=== PATIENT | female | born 1950 | race Caucasian/White ===

== ENCOUNTER → 2016-09-27 | Outpatient (CLI) | payer OTHER ==
--- NOTE | 2016-09-27 12:47 | MAMMOGRAPHY REPORT ---
BILATERAL DIGITAL SCREENING MAMMOGRAM WITH CAD: 09/27/2016 CLINICAL HISTORY: Routine screening. Patient has no complaints. TECHNIQUE: Bilateral CC and MLO views were obtained. Current study was also evaluated with a Comput er Aided Detection (CAD) system. COMPARISON: Comparison is made to exams dated: 09/16/2015 mammogram, 09/08/2014 mammogram, 09/02/2013 ma mmogram, 07/24/2012 mammogram, 07/19/2011 mammogram, and 07/16/2010 mammogram - [facility] nter. BREAST COMPOSITION: The tissue of both breasts is heterogeneously dense, which may obscure small ma sses. FINDINGS: There are scattered stable punctate microcalcifications in the breasts. No new suspicious mass, architectural distortion or cluster of microcalcifications is seen. IMPRESSION: ACR BI-RADS CATEGORY 2: BENIGN There is no mammographic evidence of malignancy. A 1 year screening mammogram is recommended. The p atient will receive written notification of the results. Approximately 10% of breast cancers are not detected with mammography. A negative mammographic repor t should not delay biopsy if a clinically suggestive mass is present. Hailey Coyle M.D. ay/:09/27/2016 12:06:09 Lead Scientist: Tia Hilliard M, [facility] letter sent: Normal 1/2 BI-RADS Code: ACR BI-RADS Category 2: Benign
== END | disposition home or self-care (01) ==
LOC: C.MAMM 09:10
PROVIDERS: ATTEND Internal Medicine
DX: Z12.31 Encounter for screening mammogram for malignant neoplasm of breast (principal)

== ENCOUNTER → 2016-11-17 | Outpatient (CLI) | payer OTHER ==
[2016-11-17 12:40] LABS: BASO % 1.1 %; BASO ABS # 0.07 K/uL (0-0.2); COMPLETE YES; EOS % 3.6 %; HEMATOCRIT 41.3 % (37-47); IG% 0.2 %; LYMPH % 41.1 %; LYMPH ABS # 2.62 K/uL (1.2-3.4); MEAN CELL VOLUME 94.7 fL (80-100); MEAN CORPUSCULAR HEMOGLOBIN 31.7 pg (25-34); MEAN CORPUSCULAR HGB CONC 33.4 g/dl (32-36); MEAN PLATELET VOLUME 11.4 fL (7.4-10.4); MONO % 8.2 %; NEUT % 45.8 %; PLATELET COUNT 278 K/uL (130-400); RED BLOOD COUNT 4.36 M/uL (4.2-5.4); WHITE BLOOD COUNT 6.37 K/uL (4.8-10.8)
[2016-11-17 12:57] LABS: CALCIUM 9.8 mg/dl (8.5-10.1)
[2016-11-17 12:58] LABS: BLOOD UREA NITROGEN 20 mg/dl (7-18); BUN/CREATININE RATIO 25.6 (10-20); CARBON DIOXIDE 28 mmol/L (21-32); CHLORIDE 105 mmol/L (98-107); CREATININE 0.79 mg/dl (0.60-1.20); GLUCOSE 88 mg/dl (70-99); MAGNESIUM 2.6 mg/dl (1.8-2.4); SODIUM 140 mmol/L (136-145)
== END | disposition home or self-care (01) ==
LOC: C.LABSPEC 12:10
PROVIDERS: ATTEND Internal Medicine
DX: M25.561 Pain in right knee (principal); M25.562 Pain in left knee; M79.1 Myalgia

== ENCOUNTER → 2016-11-17 | Outpatient (CLI) | payer OTHER ==
--- NOTE | 2016-11-17 12:37 | DIAGNOSTIC IMAGING REPORT ---
LEFT HIP UNILATERAL 2 VIEWS CLINICAL HISTORY: Left hip pain. COMPARISON: None. DISCUSSION: There are mild to moderate osteoarthritic changes. There are no acute fractures. No destructive lesions are visualized. There are no dislocations. IMPRESSION: Osteoarthritic change. No evidence of fracture. No destructive lesions are visualized. Electronically signed by: Jaquan Mancuso M.D. 11/17/2016 12:36 PM Dictated Date/Time: 11/17/2016 12:35 PM
--- NOTE | 2016-11-17 12:39 | DIAGNOSTIC IMAGING REPORT ---
LEFT KNEE 1 OR 2 VIEWS ROUTINE CLINICAL HISTORY: Left knee pain COMPARISON: None. DISCUSSION: There are mild osteoarthritic changes present. No acute fractures are visualized. No destructive lesions are evident. IMPRESSION: Mild degenerative change. No fractures identified. Electronically signed by: Jaquan Mancuso M.D. 11/17/2016 12:38 PM Dictated Date/Time: 11/17/2016 12:38 PM
--- NOTE | 2016-11-17 12:40 | DIAGNOSTIC IMAGING REPORT ---
RIGHT KNEE 2 VIEWS CLINICAL HISTORY: Right knee pain COMPARISON: None. DISCUSSION: No acute fractures are visualized. There are minor degenerative changes present. There are no destructive lesions. IMPRESSION: Minor degenerative change. No fractures identified. Electronically signed by: Jaquan Mancuso M.D. 11/17/2016 12:39 PM Dictated Date/Time: 11/17/2016 12:38 PM
== END | disposition home or self-care (01) ==
LOC: C.RAD 11:43
PROVIDERS: ATTEND Internal Medicine
DX: M25.562 Pain in left knee (principal); M25.561 Pain in right knee; M25.552 Pain in left hip; M16.12 Unilateral primary osteoarthritis, left hip

== ENCOUNTER → 2017-04-27 | Outpatient (CLI) | payer OTHER ==
[2017-04-27 13:41] LABS: ALT/SGPT 18 U/L (12-78); AST/SGOT 18 U/L (15-37); BLOOD UREA NITROGEN 26 mg/dl (7-18); BUN/CREATININE RATIO 32.7 (10-20); CARBON DIOXIDE 26 mmol/L (21-32); CHLORIDE 107 mmol/L (98-107); CHOLESTEROL 222 mg/dl (0-200); GLUCOSE 84 mg/dl (70-99); SODIUM 139 mmol/L (136-145)
[2017-04-27 13:44] LABS: ALB/GLOB RATIO 1.1 (0.9-2); ALKALINE PHOSPHATASE 78 U/L (45-117); CHOLESTEROL/HDL RATIO 2.9; HDL CHOLESTEROL 77 mg/dl; TRIGLYCERIDES 110 mg/dl (0-150); VERY LOW DENSITY LIPOPROT CALC 22 mg/dl
[2017-04-27 14:15] LABS: BASO ABS # 0.06 K/uL (0-0.2); COMPLETE YES; EOS % 7.5 %; HEMATOCRIT 40.1 % (37-47); IG% 0.2 %; LYMPH % 36.6 %; MEAN CELL VOLUME 94.6 fL (80-100); MEAN CORPUSCULAR HEMOGLOBIN 31.8 pg (25-34); MEAN CORPUSCULAR HGB CONC 33.7 g/dl (32-36); MEAN PLATELET VOLUME 11.3 fL (7.4-10.4); NEUT % 46.7 %; PLATELET COUNT 286 K/uL (130-400); RED BLOOD COUNT 4.24 M/uL (4.2-5.4); WHITE BLOOD COUNT 5.74 K/uL (4.8-10.8)
== END | disposition home or self-care (01) ==
LOC: C.LABSPEC 12:43
PROVIDERS: ATTEND Internal Medicine
DX: E78.5 Hyperlipidemia, unspecified (principal); M19.90 Unspecified osteoarthritis, unspecified site

== ENCOUNTER → 2017-04-28 | Outpatient (CLI) | payer OTHER | END | disposition home or self-care (01) | LOC: C.LABSPEC 15:25 | PROVIDERS: ATTEND Internal Medicine | DX: Z12.11 Encounter for screening for malignant neoplasm of colon (principal) ==

== ENCOUNTER → 2017-06-07 | Outpatient (CLI) | payer OTHER ==
--- NOTE | 2017-06-07 15:27 | DIAGNOSTIC IMAGING REPORT ---
Gabriele ABDUL SHLDR,HIP,KNEE CLINICAL HISTORY: 66 years-old Female presenting with LEFT HIP DJD. COMPARISON: 11/17/2016. PROCEDURE: The risks, benefits, and alternatives to the procedure were discussed with the patient. Written informed consent was obtained. The patient was placed supine on the fluoroscopy table, and a left hip injection was performed under fluoroscopic guidance. The area was prepped and draped in the usual sterile fashion. The skin and soft tissues anesthetized with local 1% lidocaine. The left hip joint was accessed utilizing a 22-gauge needle. Approximately 1 mL of Optiray 300 was injected into the joint space under fluoroscopic guidance to confirm intra-articular positioning. Subsequently, a 10 mL mixture containing 8 mL of 0.5% Bupivacaine and 2 mL of betamethasone was injected into the joint. The procedure was well tolerated without immediate complication. Fluoroscopy dosage (mGy): Not available.. Fluoroscopy time: 11 seconds. Number of fluoroscopic spot images: 0. IMPRESSION: Successful injection of the left hip under fluoroscopic guidance. Electronically signed by: Larry Romero M.D. 06/07/2017 3:25 PM Dictated Date/Time: 06/07/2017 3:25 PM
== END | disposition home or self-care (01) ==
LOC: C.RADBC 13:57
PROVIDERS: ATTEND Orthopaedic Surgery
DX: M16.12 Unilateral primary osteoarthritis, left hip (principal)

== ENCOUNTER → 2017-09-01 | Outpatient (CLI) | payer OTHER ==
--- NOTE | 2017-09-01 15:07 | DIAGNOSTIC IMAGING REPORT ---
L INJ MAJOR JNT SHLDR,HIP,KNEE CLINICAL HISTORY: HIP PAIN COMPARISON STUDY: None FLUOROSCOPY TIME: 16 seconds. FINDINGS: Following description of procedure and informed consent, a 20-gauge needle was inserted to the left hip joint space. Its intra-articular location is confirmed with nonionic contrast administration. This is followed by therapeutic steroid injection per physician's order. There are no complications. IMPRESSION: Therapeutic left hip injection. No complications. The above report was generated using voice recognition software. It may contain grammatical, syntax or spelling errors. Electronically signed by: Justin Ferguson M.D. 09/01/2017 3:06 PM Dictated Date/Time: 09/01/2017 3:04 PM
== END | disposition home or self-care (01) ==
LOC: C.RADBC 13:53
PROVIDERS: ATTEND Orthopaedic Surgery
DX: M16.12 Unilateral primary osteoarthritis, left hip (principal)

== ENCOUNTER → 2017-10-03 | Outpatient (CLI) | payer OTHER ==
--- NOTE | 2017-10-05 07:49 | MAMMOGRAPHY REPORT ---
BILATERAL DIGITAL SCREENING MAMMOGRAM TOMOSYNTHESIS WITH CAD: 10/03/2017 CLINICAL HISTORY: Routine screening. Patient has no complaints. TECHNIQUE: Breast tomosynthesis in addition to standard 2D mammography was performed. Current study was also evaluated with a Computer Aided Detection (CAD) system. COMPARISON: Comparison is made to exams dated: 09/27/2016 mammogram, 09/16/2015 mammogram, 09/08/2014 tirso mogram, 09/02/2013 mammogram, 07/24/2012 mammogram, and 07/16/2010 mammogram - [facility] er. BREAST COMPOSITION: The tissue of both breasts is heterogeneously dense, which may obscure small mas ses. FINDINGS: The parenchymal pattern is unchanged. No developing mass, architectural distortion or clus ter of suspicious microcalcifications is seen in either breast. IMPRESSION: ACR BI-RADS CATEGORY 2: BENIGN There is no mammographic evidence of malignancy. A 1 year screening mammogram is recommended. The pa tient will receive written notification of the results. Approximately 10% of breast cancers are not detected with mammography. A negative mammographic report should not delay biopsy if a clinically suggestive mass is present. Hailey Colye M.D. ay/:10/03/2017 15:29:13 Global Position System Technician: Jayda WINTERS(Tia)(Gume), [facility] letter sent: Normal 1/2 BI-RADS Code: ACR BI-RADS Category 2: Benign
== END | disposition home or self-care (01) ==
LOC: C.MAMM 09:11
PROVIDERS: ATTEND Internal Medicine
DX: Z12.31 Encounter for screening mammogram for malignant neoplasm of breast (principal)

== ENCOUNTER 2022-11-01 05:20 | Observation (INO) ==
--- NOTE | 2022-10-05 14:27 | PAT Medication Instructions ---
Medication Instructions Date of Service October 05, 2022 Home Medications Medication Instructions Recorded clindamycin HCl 300 mg capsule 600 mg PO ONCE PRN pre dental, pre 08/02/21 invasive procedure #2 caps atorvastatin 20 mg tablet 20 mg PO QAM calcium carb-ergocalciferol (vit D2) 600 mg calcium-200 unit tablet 1 tab PO BID latanoprostene bunod 0.024 % eye drops (Vyzulta) 1 drp ophthalmic (eye) HS multivitamin 1 cap PO QAM naproxen sodium 220 mg tablet (Aleve) 220 mg PO BID PRN Pain clindamycin HCl 300 mg capsule 600 mg PO ONCE PRN pre dental, pre invasive procedure tamoxifen 20 mg tablet 20 mg PO QAM Continue as directed clindamycin HCl 300 mg capsule 600 mg PO ONCE PRN pre dental, pre invasive procedure (if needed) ASK your surgeon for instructions naproxen sodium 220 mg tablet (Aleve) 220 mg PO BID PRN Pain ASK your prescriber and surgeon tamoxifen 20 mg tablet 20 mg PO QAM DO NOT take the morning of surgery calcium carb-ergocalciferol (vit D2) 600 mg calcium-200 unit tablet 1 tab PO BID multivitamin 1 cap PO QAM Take morning of surgery With a small sip of water, OTHERWISE NOTHING TO EAT OR DRINK AFTER MIDNIGHT: atorvastatin 20 mg tablet 20 mg PO QAM Take evening before surgery calcium carb-ergocalciferol (vit D2) 600 mg calcium-200 unit tablet 1 tab PO BID latanoprostene bunod 0.024 % eye drops (Vyzulta) 1 drp ophthalmic (eye) HS Other Notes If you have any questions please call us at [phone] or [phone] or [phone] or [phone]
--- NOTE | 2022-10-11 10:01 | Anesthesiology Consultation ---
Date of Service October 11, 2022 Assessment & Plan (1) Encounter for pre-operative examination: - COVID screening: Per assessment on 10/11: No known COVID-19 positive contacts or current COVID-19 related symptoms. Travel screen negative. Patient vaccinated. At surgeon discretion if preop Covid testing being done. - Outpatient joint assessment: Pt currently scheduled for inpatient pathway. If surgeon requests review for outpatient joint pathway, patient is an acceptable candidate for outpatient joint program from anesthesia standpoint pending surgeon's office assessment that patient is motivated, has good support and completes Same Day Joint Program preop requirements. Chart Review Chart Review: Acceptable Risk for Surgery and Patient seen in Pre Admission Testing Teaching & Discussion Pre-Anesthesia Teaching/Discussion Notes: Instructed NPO after midnight before surgery,except medications with 15 cc of water. Medication instructions provided according to the PAT guidelines. History Surgery Operation Date: 11/01/22 07:00 Proposed Procedures p Right Total Hip Arthroplasty - Demetrius Watt MD Height/Weight Height: 5 ft 3 in Weight: 74.3 kg Allergies Allergy/AdvReac Type Severity Reaction Status Date / Time amoxicillin Allergy Unknown HIVES Verified 03/04/21 09:23 Sulfa (Sulfonamide AdvReac Unknown GI UPSET Verified 03/04/21 09:23 Antibiotics) Medications Home Medications Medication Instructions Recorded Confirmed Last Taken atorvastatin 20 mg tablet 20 mg PO QAM 02/11/21 10/05/22 02/22/21 calcium carb-ergocalciferol (vit 1 tab PO BID 02/11/21 10/05/22 02/22/21 D2) 600 mg calcium-200 unit tablet latanoprostene bunod 0.024 % eye 1 drp ophthalmic (eye) HS 02/11/21 10/05/22 Unknown drops (Vyzulta) multivitamin 1 cap PO QAM 02/11/21 10/05/22 02/22/21 naproxen sodium 220 mg tablet 220 mg PO BID PRN Pain 02/11/21 10/05/22 02/11/21 (Aleve) clindamycin HCl 300 mg capsule 600 mg PO ONCE PRN pre dental, pre 08/02/21 10/05/22 Unknown invasive procedure #2 caps tamoxifen 20 mg tablet 20 mg PO QAM 10/05/22 10/05/22 Unknown Past Medical History Medical History Arthritis Degenerative joint disease of right hip Glaucoma History of COVID-19 04/2022- scratchy throat, fatigue, no hospitalization, no current issues History of nerve impingement sciatic area Hypercholesterolemia Exercise / Class Metabolic Activity II 4-5 Yardwork/Stairs/Walk up hill (one FS (no CP, no SOB)) Past Family History Family History Father Diabetes Brother Diabetes Family history of Parkinson disease Grandmother No problems noted. Brother Diabetes Grandmother (Paternal) Diabetes Brother No problems noted. Past Surgical History Surgical History (Updated 10/11/22 @ 10:08 by Yennifer Connelly) History of colonoscopy with polypectomy Hx of bilateral cataract extraction S/P breast biopsy (01/29/21) pre cancerous lump right breast- on tamoxifen Status post left hip replacement Past Anesthesia History No Hx of Anesthesia Complications and No Family Hx of Anesthesia Complications History of PONV No Hx of PONV and No Hx of Motion Sickness Social History Smoking Status: Never smoker Do You Dip or Chew Tobacco: No Hx Alcohol Use: Yes Alcohol type: wine alcohol intake frequency: a few times a month Hx Substance Use: No substance use type: does not use Review of Systems Patient denies chest pain, shortness of breath, dyspnea on exertion, fever, chills, cough, wheezing, palpitations. Physical Exam Vital Signs VITALS BP 117/78 P 74 TEMP 74.3 SP02 96%RA RESP 16 PHYSICAL Full cervical extension range of motion. Full TMJ range of motion. TMD 3 finger breaths Mallampati Score 1 Dentition: intact, + crowns (several) Lungs: clear throughout to auscultation Cardiac: regular rate and rhythm, no murmurs noted Spine: normal Carotid arteries: negative bruit Extremities: no edema Lab Results Anesthesia Preop Results Results Anesthesia Widget: WBC 5.38 K/ul (4.8-10.8) 10/11/22 Hgb 12.7 g/dl (12.0-16.0) 10/11/22 Hct 38.3 % (37.0-47.0) 10/11/22 Plt 233 K/uL (130-400) 10/11/22 Na 136 mmol/L (136-145) 10/11/22 K 4.0 mmol/L (3.5-5.1) 10/11/22 Cl 104 mmol/L (98-107) 10/11/22 CO2 27 mmol/L (21-32) 10/11/22 BUN 22 mg/dl (6-23) 10/11/22 Creat 0.86 mg/dl (0.6-1.2) 10/11/22 Glucose Level 115 mg/dl (70-99(Fasting)) H 10/11/22 PT 10.6 Seconds (9.0-12.0) 10/11/22 PTT 23.1 Seconds (21.0-31.0) 10/11/22 INR 1.0 (0.9-1.1) 10/11/22 Blood Type A Positive 10/11/22 Antibody Screen NEGATIVE 10/11/22 Testing Electrocardiogram Date: 02/08/22 NSR at 60bpm. Rightward axis. Chest X-Ray Date: 02/08/22 FINDINGS: Cardiomediastinal and hilar silhouettes are within normal limits. Hyperinflation with diaphragmatic flattening. No pneumothorax, pleural effusion, airspace consolidation or overt pulmonary edema. Spondylitic spurring of the spine. Mild lower thoracic levoscoliosis. IMPRESSION: No acute process. COVID-19 Risk Screen Screening Information COVID-19 Screen Date: 10/11/22 Exposure 21 Days Family/Household +COVID Last 21 Days: No Exposure 10 Days Any COVID Exposure Last 10 Days: No Symptoms Last 10 Days Experienced COVID Sx Last 10 Days: No + COVID 0-90 Days COVID + in Last 0-90 Days: No
--- NOTE | 2022-10-28 14:47 | History and Physical Report ---
CHIEF COMPLAINT: Right hip pain. HISTORY OF PRESENT ILLNESS: The patient is a 71-year-old female well known to me from previous left hip replacement done in 2018. Over the past several years, she has developed increased pain and disc omfort in her right hip. She was seen in Pain Clinic and had an extensive spine evaluation and spine surgery, I believe done by Dr. Holly dickinson in 2021. This helped her somewhat, but really not that m [facility]. She continues to be bothered by buttock, groin, and thigh pain. She limps more as the day goes on. X-ray showed hip arthritis. She has elected to proceed with total hip replacement. PAST MEDICAL HISTORY: Her past medical history is significant for elevated cholesterol. PAST SURGICAL HISTORY: Includes: 1. Left hip replacement done on 12/12/2017. 2. Breast biopsy on 02/23/2021. 3. Spine surgery done on 02/23/2022. ALLERGIES: AMOXICILLIN AND SULFA. CURRENT MEDICATIONS: Include: 1. Multivitamin. 2. Calcium with D. 3. Vyzulta. 4. Atorvastatin. 5. Tamoxifen. SOCIAL HISTORY: A 71-year-old female. Lives in [place]. She is . Rare alcohol intake . Does not smoke. FAMILY HISTORY: Noncontributory. REVIEW OF SYSTEMS: Negative for diabetes. No neurological or vascular problems. No history of DVT or PE. No known bleeding problems. PHYSICAL EXAMINATION: GENERAL: Physical examination shows a pleasant middle-aged female, who looks to be in reasonably goo d health. HEENT: Benign. NECK: Supple. No lymphadenopathy. LUNGS: Clear to auscultation. HEART: Has a regular rate and rhythm. ABDOMEN: Soft, nontender, and nondistended. EXTREMITIES: Grossly neurovascularly intact except as follow up except as follows. Examination of the right hip revealed the patient walks independently, but with a limp on the right s aixa. She is a little bit short on the right side compared to left, about 0.5 cm. She has stiffness and pain with any type of hip motion. She can internally rotate to neutral. Negative straight leg r aise. No knee effusion. She is neurologically intact. X-RAYS: X-rays of the right hip were reviewed. It shows advanced right hip arthritis. She has got complete loss of superior joint space. She has got cystic changes and some subchondral sclerosis and flattening of the femoral head. This has progressed over the past 2 years. The left hip replacemen t looks to be in good position without problems. ASSESSMENT: A 71-year-old female status post a previous left hip replacement with advanced right hip arthritis. She has failed conservative measures. She would like to proceed with right hip replacem ent. PLAN: We will take her to the operating room and do right total hip replacement. The risks and bene fits were explained to the patient. She understands and desires to proceed. Informed consent was ob tained. She is planned to be discharged to home using [facility]. Job ID: [id number]
[~2022-11-01 05:20] MED LIST: ALLERGY Noted to ORDERED Medication: Cefazolin SCH
[2022-11-01] MEDS ORDERED: METOCLOPRAMIDE HCL 10 MG TABLET PO SCH (06:00)
[2022-11-01] MEDS ORDERED: ACETAMINOPHEN 500 MG TAB PO SCH (06:00)
[2022-11-01] MEDS ORDERED: CeleBREX 200 MG CAP PO SCH (06:00)
[2022-11-01] MEDS ORDERED: TRANEXAMIC ACID 1,000 MG **IV Pre-op IV SCH (06:00)
[2022-11-01] MEDS ORDERED: LR 500ML BOLUS, THEN 15ML/HR IV SCH (06:00)
[2022-11-01] MEDS ORDERED: LR 60ML/HR IV SCH (06:00)
[2022-11-01] MEDS ORDERED: FAMOTIDINE 20 MG TAB PO SCH (06:00)
[2022-11-01] MEDS ORDERED: dexAMETHasone**PF** 10 MG/ML VIAL IV SCH (06:00)
[2022-11-01] MEDS ORDERED: BUPIVACAINE 0.5 % 5 MG/1 ML PF 10ML VIAL ONE (06:19)
[2022-11-01] MEDS ORDERED: BUPIVACAINE/EPINEPHRINE 0.5% MPF 1:200,000 30 ML VIAL ONE (06:35)
[2022-11-01] MEDS ORDERED: MIDAZOLAM HCL 1 MG/ML 2ML VIAL ONE (06:41)
[2022-11-01] MEDS ORDERED: MoRPHine SULFATE PF 1 MG/ML 10 ML AMP/VIAL ONE (06:42)
--- NOTE | 2022-11-01 06:52 | History & Physical Bridge Note ---
Date of Service November 01, 2022 History & Physical Bridge Note I have examined the patient, reviewed the History & Physical and in the interval since the performance of the History & Physical I have noted the following changes of clinical significance: no changes noted
[2022-11-01] MEDS ORDERED: ATROPINE SULFATE 0.1 MG/ML 10ML SYR IV PRN (07:00)
[2022-11-01] MEDS ORDERED: fentaNYL citrate PF 100 MCG/2 ML VIAL IV PRN (07:00)
[2022-11-01] MEDS ORDERED: ONDANSETRON INJ 2 MG/ML 2 ML VIAL IV PRN ×3 (07:00→10:30)
[2022-11-01] MEDS ORDERED: ePHEDrine sulfate 50 MG/ML AMP IV PRN ×2 (07:00→10:30)
[2022-11-01] MEDS ORDERED: diphenhydrAMINE 50 MG/ML VIAL ONE (07:21)
[2022-11-01] MEDS ORDERED: ceFAZolin 330 MG/ML 1 GM VIAL ONE (07:21)
[2022-11-01] MEDS ORDERED: KETOROLAC 30 MG/ML VIAL ONE (07:21)
[2022-11-01] MEDS ORDERED: PROPOFOL IV EMULSION 10 MG/ML 20 ML VIAL IV ONE (07:21)
[2022-11-01] MEDS ORDERED: ONDANSETRON INJ 2 MG/ML 2 ML VIAL ONE (07:21)
[2022-11-01] MEDS ORDERED: PHENYLEPHRINE 100MCG/ML 5ML SYR ONE (07:28)
[2022-11-01] MEDS ORDERED: ePHEDrine sulfate 50 MG/ML AMP ONE (07:40)
[2022-11-01] MEDS ORDERED: ceFAZolin 2000MG 2,000 MG/15 ML SYR IV SCH (07:55)
[2022-11-01] MEDS ORDERED: ePHEDrine sulfate 50 MG/ML SYR ONE (08:05)
[2022-11-01] MEDS ORDERED: PHENYLEPHRINE HCL 10 MG/ML VIAL ONE (08:11)
--- NOTE | 2022-11-01 08:39 | Operative Report ---
PG Post Operative Report Pre & Post Diagnosis Operation Date: 11/01/22 07:00 Pre-Op Diagnosis: Right Hip Degenerative Joint Disease Post-Op Diagnosis: Right Hip Degenerative Joint Disease I identified the patient and participated in the time-out.: Yes Procedure Operation Date: 11/01/22 07:00 Actual Procedures p Right Total Hip Arthroplasty, Uncemented(Right) - Demetrius Watt MD Surgeon Demetrius Watt MD [employer] Kendell Okeefe PA-C Estimated Blood Loss 200 Findings Consistent with Post-Op Diagnosis Operative findings were advanced right hip DJD. She had grade 4 [id number] disease of the femoral head and acetabulum. Some small anterior acetabular osteophytes. Moderate-sized joint effusion. Specimens Right femoral head sent for pathology Anesthesia Type Spinal MAC Complications none Disposition Accompanied Patient To Recovery: No Indications Patient is a 71-year-old female who has had a several year history of increasing right hip and leg pain and discomfort. She underwent a left hip replacement back in 2018 is done well from this. X-rays show progressive hip arthritis. She failed conservative measures. She elected proceed with total hip arthroplasty. Description of Procedure Operative implants consist of: 1. Biomet G7 size 50 mm acetabular shell. 2. 6.5 cancellous acetabular screws 1 of 35 mm length 1 to 20 mm length. 3. Crawford hole eliminator. 4. Highly cross-linked polyethylene liner with a 50 mm outer diameter and 36 mm diameter. 5. DePuy Corail size 10 KLA femoral stem. 6. +5/36 mm ceramic articular ball. The patient was taken to the operating, identified, placed on the operating table supine position protectors were properly padded. IV antibiotics tried by anesthesia team. A spinal anesthetic had been implemented holding area. Siddiqui catheter was placed in sterile fashion. The patient then placed in the left lateral decubitus position. A axillary roll was placed. Stulberg hip positioner was used for positioning. The right hip and leg were then prepped and draped in usual sterile fashion. A posterior lateral approach of the right hip was then performed through a curvilinear incision centered over the greater trochanter. Sharp dissection was carried through subcutaneous tissue down below the IT band gluteal fascia the IT band gluteal fascia was lysed longitudinally in line with skin incision. The underlying greater bursa was excised. The piriformis and external rotators along with the posterior hip joint capsule were then released from the posterior aspect hip as a single layer. Great care was taken throughout the procedure protect sciatic nerve at all times. The hip was then internally rotated and dislocated. A femoral neck osteotomy cut was made with a Final Cut about 10 to 12 mm above the lesser trochanter. Femoral head was removed and sent for pathology. The femur was retracted anteriorly. Attention drawn the acetabulum. The acetabular labrum was excised. The pulmonary fat was excised. Sequential reaming the acetabular was then performed again with size 43 and progressing up to 49. I did ream with a 50 reamer and then placed a 50 mm acetabular cup in about 40 degrees of lateral opening and 20 degrees of anteversion. It was fixed with two 6.5 cancellous acetabular screws. Some small anterior osteophytes removed. Trial liner was placed. Attention drawn the femur. The proximal femur was entered with a cookie cutter followed by canal finder. I then broached begin the size 8 and progressing up to 10. We got excellent fit of the tendon. I did not think I could probably get the 11 without risking fracture. We trialed the hip and the +5 articular ball provide full stability and appropriate soft tissue tension and equal leg lengths. We elected to use these implants. Nupathe all trial implants were removed. An apex eliminator was placed. Highly cross-linked polyethylene liner was placed. A size 10 KLA femoral stem was impacted in position. A +5/36 mm ceramic articular ball was placed. Hip was located and once again found to be stable. Attention drawn to closing. The wound was irrigated scope sounds pulsatile lavage solution. I did inject locally with 60 cc of half percent Marcaine with epinephrine. The posterior capsule and external rotators then repaired through drill holes in the posterior trochanter with #2 Tycron suture. The IT band gluteal fascia then closed in 1 PDS suture in a running fashion subcu cutaneous tissues were repaired in 2 layers with a deep layer #2 Vicryl suture in the subcutaneous tissues with 2-0 Dexon suture in a buried interrupted fashion. The skin was closed with skin inocente. A Prevena VAC dressing was then placed due to the fairly thick soft tissue envelope. The patient was then transferred to the recovery room in stable condition. Patient tolerated the procedure well and there are no complications. Kendell Okeefe, my physician stylist assistant, was present for the entire procedure. His assistance was essential and required for appropriate patient positioning, prepping and draping, surgical exposure, performing the technical details of the operation, placement the implants, closure of the wound, and placement of the sterile bandage. I attest to the content of the Intraoperative Record and any orders documented therein. Any exceptions are noted below.
--- NOTE | 2022-11-01 09:36 | XRay Report ---
XR hip 1V RT w pelvis CLINICAL HISTORY: Postoperative evaluation. COMPARISON: Right hip radiographs September 12, 2022. FINDINGS: Alignment of the total right hip arthroplasty is anatomic. There is no periprosthetic frac ture. No unexpected radiopaque foreign bodies. Left hip arthroplasty is noted. There are postoperativ e findings within the right sacroiliac joint. IMPRESSION: Expected findings following total right hip arthroplasty. ACT 112: Negative or not required by law. Electronically signed by: Sergio Curiel M.D. 11/01/2022 9:35 AM
[2022-11-01] MEDS ORDERED: METOCLOPRAMIDE HCL INJ 5 MG/ML 2 ML VIAL IV PRN (10:17)
[2022-11-01] MEDS ORDERED: MAGNESIUM HYDROXIDE SUSP 30 ML UDC PO PRN (10:17)
[2022-11-01] MEDS ORDERED: traMADol HCL 50 MG TABLET PO PRN (10:17)
[2022-11-01] MEDS ORDERED: ALUMINUM/MAGNESIUM SUSP 30 ML UDC PO PRN (10:17)
[2022-11-01] MEDS ORDERED: HYDROmorphone INJ 0.5 MG/0.5 ML SYR IV PRN ×2 (10:17→10:30)
[2022-11-01] MEDS ORDERED: NON-FORMULARY MEDICATION (Multivitamin Capsule) PO SCH (10:17)
[2022-11-01] MEDS ORDERED: NALOXONE HCL 0.4 MG/1 ML VIAL/CARP IV PRN ×2 (10:17→10:30)
[2022-11-01] MEDS ORDERED: bisacodyL 10 MG SUPP PR PRN (10:17)
[2022-11-01] MEDS ORDERED: NO NARCOTICS OR SEDATIVES SCH (10:30)
[2022-11-01] MEDS ORDERED: NALBUPHINE HCL INJ 10 MG/ML AMP IV PRN (10:30)
[2022-11-01] MEDS ORDERED: MoRPHine SULFATE PF 1 MG/ML 10 ML AMP/VIAL INT SPINAL ONE (10:30)
[2022-11-01] MEDS ORDERED: LACTATED RINGER'S 500 ML IV PRN (10:30)
[2022-11-01] MEDS ORDERED: NALOXONE HCL 0.08 MG in SYRINGE 1.8 ML IV PRN (10:30)
[2022-11-01] MEDS ORDERED: diphenhydrAMINE 50 MG/ML VIAL IV PRN (10:30)
[2022-11-01] MEDS ORDERED: DC INTRASPINAL MORPHINE SCH (10:30)
[2022-11-01] MEDS ORDERED: SODIUM CHLORIDE 0.9% 1000ML 1,000 ML IV SCH (10:30)
[2022-11-01] MEDS ORDERED: NALOXONE HCL 1 MG in SODIUM CHLORIDE 0.9% 1000ML 1,000 ML IV PRN (10:30)
[2022-11-01] MEDS: SODIUM CHLORIDE 0.9% 1000ML 1,000 ML IV SCH ×2 (11:13→20:51)
[2022-11-01] MEDS: DOCUSATE SODIUM 100 MG CAP PO SCH ×2 (11:51→20:58)
[2022-11-01] MEDS: ATORVASTATIN 20 MG TAB PO SCH (11:52)
[2022-11-01] MEDS: MULTIVITAMIN TAB PO SCH (11:52)
[2022-11-01] MEDS: CALCIUM 600MG + VIT D 400 IU TAB PO SCH ×2 (11:52→20:58)
[2022-11-01] MEDS: SENNA 8.6 MG TAB PO SCH ×2 (11:52→20:58)
[2022-11-01] MEDS: ASPIRIN 81 MG ECTAB PO SCH ×2 (11:53→20:59)
[2022-11-01] MEDS: TAMOXIFEN CITRATE 10 MG TABLET PO SCH (11:54)
[2022-11-01] MEDS: KETOROLAC TROMETHAMINE 15 MG/ML VIAL IV SCH ×3 (11:59→23:29)
--- NOTE | 2022-11-01 12:28 | Anesthesiology Progress Note ---
Date of Service November 01, 2022 Anesthesia Post Procedure Vital Signs Vital Signs: Temp Pulse Pulse Resp BP BP Pulse Ox 11/01/22 12:06 16 96 11/01/22 12:05 72 16 104/67 96 11/01/22 11:00 16 96 11/01/22 11:11 78 16 96/59 L 96 11/01/22 10:38 16 95 11/01/22 10:36 74 16 99/62 L 95 11/01/22 10:00 16 99 11/01/22 10:00 36.4 C L 70 16 92/61 L 99 11/01/22 09:10 75 16 100/58 L 93 11/01/22 09:50 36.2 C L 76 14 86/61 L 96 11/01/22 09:30 36.2 C L 81 22 92/58 L 96 11/01/22 09:20 36.2 C L 70 18 99/58 L 98 11/01/22 09:00 36.4 C L 72 15 101/73 95 11/01/22 08:50 36.4 C L 79 22 104/59 L 99 11/01/22 08:40 36.4 C L 83 19 96/50 L 99 11/01/22 08:30 36.4 C L 77 25 H 102/59 L 100 11/01/22 05:51 36.4 C L 77 20 132/83 96 O2 Del Method O2 Flow Rate 11/01/22 12:06 11/01/22 12:05 Room Air 11/01/22 11:00 11/01/22 11:11 Room Air 11/01/22 10:38 11/01/22 10:36 Room Air 11/01/22 10:00 11/01/22 10:00 Room Air 11/01/22 09:10 Room Air 0 11/01/22 09:50 Room Air 11/01/22 09:30 Room Air 11/01/22 09:20 Room Air 11/01/22 09:00 Room Air 0 11/01/22 08:50 Room Air 0 11/01/22 08:40 Room Air 0 11/01/22 08:30 Oxymask 6 11/01/22 05:51 Room Air Pain Intensity Right Hip: Pain Intensity: 0 Transfer of Care Handoff Completed per policy Notes Mental Status: alert / awake / arousable and participated in evaluation Patient Amnestic to Procedure: Yes Nausea / Vomiting: adequately controlled Pain: adequately controlled Airway Patency, RR, SpO2: stable & adequate BP & HR: stable & adequate Hydration State: stable & adequate Neuraxial Anesthesia: was administered and sensory block is resolving Anesthetic Complications: no major complications apparent and Pt Satisfied with anesthetic care
[2022-11-01] MEDS: ACETAMINOPHEN 500 MG TAB PO SCH ×2 (13:55→21:00)
[2022-11-01] MEDS: ceFAZolin 1000MG 1,000 MG/7.5 ML SYR IV SCH ×2 (13:55→21:00)
[2022-11-01] MEDS ORDERED: TRANEXAMIC ACID / 0.7% NACL 1,000 MG/100 ML BAG IV SCH (14:30)
[2022-11-01] MEDS: ASCORBIC ACID 500 MG TAB PO SCH (17:22)
[2022-11-01] MEDS: LATANOPROSTENE BUNOD OP SCH (20:54)
[2022-11-01] MEDS ORDERED: SENNA 8.6 MG TAB PO SCH (21:00)
[2022-11-02] MEDS: ACETAMINOPHEN 500 MG TAB PO SCH ×2 (05:56→13:11)
[2022-11-02] MEDS: KETOROLAC TROMETHAMINE 15 MG/ML VIAL IV SCH ×2 (05:57→12:37)
[2022-11-02] MEDS: ASPIRIN 81 MG ECTAB PO SCH (07:38)
[2022-11-02] MEDS: SENNA 8.6 MG TAB PO SCH (07:38)
[2022-11-02] MEDS: CALCIUM 600MG + VIT D 400 IU TAB PO SCH (07:38)
[2022-11-02] MEDS: DOCUSATE SODIUM 100 MG CAP PO SCH (07:38)
[2022-11-02] MEDS: ATORVASTATIN 20 MG TAB PO SCH (07:39)
[2022-11-02] MEDS: MULTIVITAMIN TAB PO SCH (07:39)
[2022-11-02] MEDS: ASCORBIC ACID 500 MG TAB PO SCH (07:39)
[2022-11-02] MEDS: TAMOXIFEN CITRATE 10 MG TABLET PO SCH (07:39)
[2022-11-02] MEDS: LATANOPROSTENE BUNOD OP SCH (07:40)
[2022-11-02 07:41] LABS: Basophils # (auto) 0.03 K/uL (0-0.2); Basophils % (auto) 0.2 %; Hematocrit (blood only) 29.7 % (37.0-47.0); Hemoglobin 10.1 g/dl (12.0-16.0); Immature Granulocytes # (auto) 0.03 K/uL (0.01-0.20); Immature Granulocytes % (auto) 0.2 %; Lymphocytes # (auto) 2.14 K/uL (1.2-3.4); Lymphocytes % (auto) 17.6 %; Mean Corpuscular Hemoglobin 32.6 pg (25.0-34.0); Mean Corpuscular Volume 95.8 fL (80.0-100.0); Mean Platelet Volume 11.1 fL (9.4-12.4); Monocytes # (auto) 0.88 K/uL (0.11-0.59); Monocytes % (auto) 7.2 %; Neutrophils # (auto) 9.07 K/uL (1.40-6.50); Neutrophils % (auto) 74.8 %; Platelet Count 198 K/uL (130-400); RDW Coefficient of Variation 13.5 % (11.5-14.5); RDW Standard Deviation 47.8 fL (36.4-46.3); White Blood Count 12.15 K/ul (4.8-10.8)
[2022-11-02] MEDS ORDERED: dexAMETHasone 10 MG in SYRINGE 0 ML IV SCH (08:00)
[2022-11-02 08:34] LABS: BUN Creatinine Ratio 24.2 (10-20); Calcium 8.5 mg/dl (8.6-10.3); Creatinine Clr Calc Pharmacy 51.6 ml/min; Est GFR (African American) 69.4 ml/min; Est GFR (Non-African American) 59.8 ml/min; Potassium 4.5 mmol/L (3.5-5.1)
--- NOTE | 2022-11-02 15:59 | Progress Notes ---
DATE OF SERVICE: 11/02/2022 SUBJECTIVE: A 71-year-old white female postoperative day 1 from right hip replacement. She is doing well. Therapy went well. Pain is controlled. She is hoping to go home. She is actually dressed a nd ready to go. OBJECTIVE: VITAL SIGNS: Temperature is 36.4. Vital signs are stable. PHYSICAL EXAMINATION: GENERAL: Physical examination shows a pleasant, elderly female. She is sitting in her bedside chair and looks comfortable. LUNGS: Clear to auscultation. HEART: Regular rate and rhythm. ABDOMEN: Soft, nontender, and nondistended. EXTREMITIES: Grossly neurovascularly intact except as follows. Examination of the right hip and leg reveals the dressing to be clean, dry, and intact. She has got a Prevena VAC dressing in place. Her thigh is soft and supple. Leg lengths are equal. Hip is locat ed. She is neurologically intact. LABORATORY DATA: Hemoglobin 10.1. Hematocrit 29.7. Electrolytes are stable. ASSESSMENT: A 71-year-old white female postoperative day 1 from right hip replacement, doing quite w ell. Pain is controlled. Hip is located. She is neurologically intact. She is hoping to go home. PLAN: 1. DVT prophylaxis to include thigh-high TEDs, SCDs, and aspirin twice a day. 2. PT/OT. She can fully weightbear as tolerated. Does need to obey hip precautions. 3. Pain control, doing okay with current pain regimen. 4. Disposition: Plan to discharge her to home with some home health today. Job ID: [id number]
--- NOTE | 2022-11-05 14:36 | Discharge Summary ---
Date of Service November 05, 2022 Discharge Data Procedures Performed Operation Date: 11/01/22 07:00 Actual Procedures p Right Total Hip Arthroplasty, Uncemented(Right) - Demetrius Watt MD Hospital Course (1) S/P total right hip arthroplasty: This is a 71 year old patient admitted on 11/01/22 and underwent total hip arthroplasty. She tolerated the procedure well and there were no complications. Transferred to the PACU post op and later to the orthopedic floor for further care. She was given ancef for antibiotic prophylaxis. She was also given FAVIOLA stockings, SCDs, and aspirin for DVT prophylaxis. Hemoglobin, hematocrit, and vital signs were monitored during her hospital stay and remained stable. Did not require any blood transfusions. There were no complications during her hospital stay. By post op day #1 the patient was tolerating a regular diet, pain was reasonably controlled with oral pain medicine, and she was participating in physical therapy. On post op day #1 the patient was discharged home and set up with home health care. She was given printed discharge instructions including prescriptions for extra strength tylenol, aspirin, ketorolac, zofran, senokot, and tramadol. Continue physical therapy, weight bearing as tolerated. Continue hip precautions. Continue FAVIOLA stockings. Follow up approximately 2 weeks post op or sooner if there are problems or concerns. Coding Level of Care Code None Diagnoses S/P total right hip arthroplasty Z96.641
== END 2022-11-02 13:50 | disposition home health service (06) ==
LOC: ASU 05:20 → 3E 05:20